=== PATIENT | male | born 1985 | race Caucasian/White ===

== ENCOUNTER 2021-09-02 05:48 | Day surgery (SDC) | payer OTHER ==
[~2021-09-02] VITALS: Ht 172.7 cm; Wt 81.0 kg
--- NOTE | ~2021-09-02 | OR ---
[facility] [address] [place], [place] [address] Draft DATE OF OPERATION: 09/02/2021 SURGEON: José Antonio Ritter MD PREOPERATIVE DIAGNOSIS: Condyloma acuminatum of the penis x2. POSTOPERATIVE DIAGNOSIS: Condyloma acuminatum of the penis x2. NAME OF PROCEDURE: Excision of penile condyloma. ANESTHESIA: 1. 10 mL of 0.25% Marcaine. 2. Monitored anesthesia care. ESTIMATED BLOOD LOSS: None. COMPLICATIONS: None. DRAINS: None. SPECIMENS: Condyloma x2. INDICATIONS FOR PROCEDURE: Mr. Chihsolm is a very pleasant 36-year-old gentleman, who recently presented to me with complaints of recurrent condyloma acuminatum of the penis. He has undergone excisions of condyloma in the past and is requesting excision of another lesion. Of note, the patient also noted progressive swelling of his left hemiscrotum. Physical examination confirmed the presence of a small left hydrocele, however, the [employer] did not authorize a left hydrocelectomy. However, they did authorize excision of his condyloma acuminatum and he presents to undergo this procedure today. OPERATIVE FINDINGS: 1. Visual inspection of the external genitalia reveals a circumcised phallus with a PATIENT NAME: ARE CHISHOLM OPERATIVE REPORT DATE OF : 83 REPORT #: [id number] PHYSICIAN: JOSÉ ANTONIO RITTER MD PCP: TAMMI THOMAS DO REPORT IS CONFIDENTIAL AND NOT TO BE RELEASED WITHOUT AUTHORIZATION [facility] [address] [facility] [place] [place] [address] Draft glanular meatus. Testicles are descended bilaterally. There is mild left hemiscrotal swelling noted, consistent with a left hydrocele. The patient has a 4 mm lesion consistent with condyloma present on the ventral aspect of his penis just proximal to the coronal sulcus. There is another 2 mm on the dorsal aspect of the proximal portion of the shaft of the penis. Both of these lesions were excised using a 15 blade. The biopsy sites were then gently cauterized and then closed using 4-0 Vicryl. 2. No other penile or scrotal abnormalities were noted on exam. DESCRIPTION OF PROCEDURE: After informed consent was obtained, the patient was taken back to the operating room. He was transferred from the [facility] to the operating room table, where MAC anesthesia was induced. He was placed in the supine position and his genitalia were prepped and draped in a standard sterile fashion. Visual inspection of the patient's genitalia was then performed. Please see above finding. A 15 blade was then used to excise the small 2 mm lesion on the dorsal aspect of the penis, near the base. The biopsy site was then gently cauterized and then closed with one simple interrupted 4-0 Vicryl suture. I then turned my attention to the ventral surface of the penis. A 4-5 mm lesion was noted there, near the coronal sulcus. Again, a 15 blade was used to gently excise the lesion superficially and then cautery was again used at the base of the biopsy site. This area was then closed using two separate simple interrupted 4-0 Vicryl sutures. At the end of the procedure, hemostasis had been achieved, and the lesions were fully closed. Bacitracin was then placed on the lesions along with two Band-Aids. The procedure was then terminated. The patient tolerated the procedure well without any complication. A total of 10 mL of 0.25% Marcaine was then injected into both biopsy sites as well as the base of the penis as a penile block. The patient will now be transferred to the postanesthesia care unit in stable condition. DISPOSITION: I discussed the details of today's procedure with the patient's girlfriend, Michelle and answered all of her questions. He will be sent home on three days worth of cephalexin and will be given a total of five pills of oxycodone 5 mg to be used as needed for pain. He will be scheduled to return to clinic in six weeks for a postoperative evaluation. MD CAPRICE Esparza/FIDENCIO /[id number] PATIENT NAME: RAE CHISHOLM OPERATIVE REPORT DATE OF : 83 REPORT #: [id number] PHYSICIAN: JOSÉ ANTONIO RITTER MD PCP: TAMMI THOMAS DO REPORT IS CONFIDENTIAL AND NOT TO BE RELEASED WITHOUT AUTHORIZATION [facility] [address] [place], [place] [address] Draft Copies: ~ PATIENT NAME: RAE CHISHOLM OPERATIVE REPORT DATE OF : 83 REPORT #: [id number] PHYSICIAN: JOSÉ ANTONIO RITTER MD PCP: TAMMI THOMAS DO REPORT IS CONFIDENTIAL AND NOT TO BE RELEASED WITHOUT AUTHORIZATION
[~2021-09-02 05:48] MED LIST: AWAKE200 MG PO; BUPROPION HCL75 MG PO; HYDROXYZINE HCL25 MG PO; MELATONIN10 M3 PO; NICOTINE GUM4 MG BUCCAL; PROBIOTIC1 EAC1 PO; ZOLOFT50 MG PO
[2021-09-02] MEDS ORDERED: CLONIDINE HCL0.1 MG PO (06:15)
--- NOTE | 2021-09-02 08:58 | NUR ---
09/02/21 0858 Ainsley Cruz 0811 PT ARRIVED IN PACU SLEEPY. 0815 PT AWAKE AND TRYING TO TALK ANESTHESIA INTO GIVING HIM MORE MEDICATION TO FALL BACK ASLEEP. ANESTHESIA EXPLAINED SURGERY WAS OVER AND TO TRY AND GO BACK TO SLEEP. 0830 PT WANTING TO TALK TO HEAD NURSE ABOUT GETTING MORE ANESTHESIA. OR CHARGE AT BEDSIDE EXPLAINING TO PT SURGERY IS OVER. PT STATES "FINE, I WANT TO GO HOME." RN AT BEDSIDE WHILE PT GETTING DRESSED. 0845 DC INSTRUCTIONS GIVEN. ALL QUESTIONS ANSWERED.
--- NOTE | 2021-09-02 10:13 | NUR ---
PT ALERT, ORIENTED AND SUPPORTED BY HIS G.FRIEND DEIDRE.PT EXPRESSED HIS CONFIDENCE IN DR AND HIS UNDERSTANDING OF TODAY. DEIDRE WILL REMAIN, PT REQUESTED PRAYER. [employer]CHNOLOGY SALES CONSULTANTEVIN STALEY INTO TAKE PT TO SURGERY, GAVE BLESSING AND WILL FOLLOW NEEDED
--- NOTE | 2021-09-02 10:29 | NUR ---
1014-PHONE CALL FROM [facility]. DUPLEX TRIMMER STATES CEPHALEXIN 750MG IN UNAVALIABLE. VO FROM DR. RITTER FOR CEPHALEXIN 500MG Q 8 HOURS X'S 3 DAYS GIVEN TO PHARMACY.
--- NOTE | 2021-09-05 17:10 | PATH ---
[facility] [address] [facility] [place], [place] [address] Signed SPECIMEN(S): A CONDYLOMA ON PENIS X 2 SPECIMEN SOURCE: A. CONDYLOMA ON PENIS X 2 CLINICAL HISTORY: Pre/Post: Condyloma x 2 on penis. FINAL PATHOLOGIC DIAGNOSIS: Condyloma on penis, excision: - Condyloma accuminatum with underlying non-necrotizing granulomatous inflammation; see comment. - Negative for malignancy. - Negative for fungal organisms on PAS stain. - Negative for mycobacteria on AFB stain. COMMENT: A properly controlled immunohistochemical stain for p16 shows focal strong, block positivity in epithelium. 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 DDF:emh:C2NR MICROSCOPIC EXAMINATION: Histologic sections of all submitted blocks are examined by light microscopy. These findings, together with the gross examination, support the pathologic diagnosis. GROSS DESCRIPTION: The specimen, labeled "MM, condyloma on penis," is received in formalin and consists of two pink-brady skin, verruciform tissue fragments that measure 0.2 and 0.6 cm in greatest dimension. Specimen is inked and entirely submitted in single cassette (A1). JS (under the direct supervision of a pathologist) The Gross Description was prepared using a voice recognition system. The report was reviewed for accuracy; however, sound-alike word errors, addition and/or deletions may occur. If there is any question about this report, please contact Client Services. PERFORMING LABORATORY: The technical component was performed by [facility], [address] [place] [id number] (Airline Managerial Supervisor: Josephine Chino MD; CLIA# [id number]). PATIENT NAME: RAE LIANG PATHOLOGY DATE OF : 83 REPORT #: [id number] PHYSICIAN: YARY PATHOLOGY PCP: TAMMI THOMAS DO REPORT IS CONFIDENTIAL AND NOT TO BE RELEASED WITHOUT AUTHORIZATION [facility] [address] [place], [place] [address] Signed Professional interpretation was performed by [facility], [address] [place] [address] (Airline Managerial Supervisor: Josephine Chino MD; CLIA# [id number]). Diagnostician: Tesfaye Cain DO Pathologist Electronically Signed 09/05/2021 Copies: ~ PATIENT NAME: RAE LIANG PATHOLOGY DATE OF : 83 REPORT #: [id number] PHYSICIAN: YARY PATHOLOGY PCP: TAMMI THOMAS DO REPORT IS CONFIDENTIAL AND NOT TO BE RELEASED WITHOUT AUTHORIZATION
== END 2021-09-02 08:45 | disposition home or self-care (01) ==
LOC: DS 05:48
PROVIDERS: ATTEND Urology
PROC: 0VBS0ZZ Excision of Penis, Open Approach (ICD-10-PCS; principal; 2021-09-02 07:30)
DX: A63.0 Anogenital (venereal) warts (principal); R68.82 Decreased libido; N43.3 Hydrocele, unspecified; F17.200 Nicotine dependence, unspecified, uncomplicated; Z88.0 Allergy status to penicillin; Z91.030 Bee allergy status
CPT/HCPCS: J0690; J2001; J2405; J2704; J3010; J7121